=== PATIENT | female | born 2000 | race Caucasian/White ===

== ENCOUNTER 2022-09-28 14:47 | Emergency (ER) | payer OTHER ==
[~2022-09-28] VITALS: Ht 157.5 cm; Wt 60.8 kg
[2022-09-28 15:00] VITALS: BP 135/71
--- NOTE | 2022-09-28 15:20 | NUR ---
Patient discharged to home in stable condition, ambulating. Written and verbal after care instructions given. Patient verbalizes understanding of instruction.
== END 2022-09-28 15:20 | disposition home or self-care (01) ==
LOC: ER 14:55
DX: H10.9 Unspecified conjunctivitis (principal); J02.9 Acute pharyngitis, unspecified